=== PATIENT | female | born 1960 | race Caucasian/White ===

== ENCOUNTER 2018-11-21 16:30 | Inpatient (IN) | payer OTHER ==
[2018-11-21 17:29] LABS: ADD MAN DIFF? NO
[2018-11-21 17:32] LABS: WHITE BLOOD COUNT 7.6 10^3/ul (4.8-10.8)
[2018-11-21 17:32] LABS: BASOPHIL # 0.1 10^3/ul (0.0-0.1); BASOPHILS % 0.7 % (0.0-2.0); EOSINOPHILS # 0.1 10^3/ul (0.0-0.5); EOSINOPHILS % 0.7 % (0.0-7.0); HEMATOCRIT 42.8 % (37.0-47.0); HEMOGLOBIN 13.8 g/dl (12.0-16.0); LYMPHOCYTES # 2.1 10^3/ul (0.8-2.9); LYMPHOCYTES % 27.1 % (15.0-51.0); MEAN CORPUSCULAR HEMOGLOBIN 29.2 pg (29.0-33.0); MEAN CORPUSCULAR HGB CONC 32.2 g/dl (32.0-37.0); MEAN CORPUSCULAR VOLUME 90.7 fl (82.0-101.0); MEAN PLATELET VOLUME 9.6 fl (7.4-10.4); MONOCYTE # 0.4 10^3/ul (0.3-0.9); MONOCYTES % 5.3 % (0.0-11.0); NEUTROPHILS % 66.1 % (39.0-77.0); PLATELET COUNT 280 10^3/UL (140-415); RED BLOOD COUNT 4.72 10^6/ul (4.20-5.40)
[2018-11-21 17:51] LABS: ANION GAP 12 (5-13); BLOOD UREA NITROGEN 16 mg/dl (7-20); CALCIUM 9.2 mg/dl (8.4-10.2); CARBON DIOXIDE 23 mmol/L (21-31); CHLORIDE 106 mmol/L (97-110); Estimated GFR > 60 mL/min (>60); GLUCOSE 129 mg/dl (70-220); SODIUM 141 mmol/L (135-144)
[2018-11-21 18:03] LABS: B-TYPE NATRIURETIC PEPTIDE 65 PG/ML (0-125); TROPONIN-I 0.094 ng/ml (0.000-0.120)
[2018-11-21 21:35] LABS: TROPONIN-I 0.553 ng/ml (0.000-0.120)
[2018-11-21] MEDS: ASPIRIN 325 MG TAB PO (22:01)
[2018-11-21] MEDS: DEXTROSE 5%-0.45% NACL 1,000 ML IV (23:42)
[2018-11-22] MEDS ORDERED: NITROGLYCERIN (SL) 0.4 MG TAB SL
[2018-11-22] MEDS ORDERED: ENOXAPARIN 100 MG/ML SYG SC
[2018-11-22] MEDS ORDERED: NACL 0.9% 3 ML SYG IV
[2018-11-22] MEDS ORDERED: ONDANSETRON 4 MG INJ IV
[2018-11-22 01:08] LABS: CREATINE KINASE 68 IU/L (23-200)
[2018-11-22 01:21] LABS: CK INDEX 5.1; CK-MB 3.46 ng/ml (0.0-2.4)
[2018-11-22] MEDS: ENOXAPARIN 60 MG/0.6 ML SYG SC ×2 (02:08→13:23)
[2018-11-22 07:00] LABS: ADD MAN DIFF? NO
[2018-11-22 07:21] LABS: BASOPHIL # 0.1 10^3/ul (0.0-0.1); BASOPHILS % 0.7 % (0.0-2.0); EOSINOPHILS # 0.1 10^3/ul (0.0-0.5); EOSINOPHILS % 0.6 % (0.0-7.0); HEMATOCRIT 41.8 % (37.0-47.0); HEMOGLOBIN 13.3 g/dl (12.0-16.0); LYMPHOCYTES # 3.1 10^3/ul (0.8-2.9); LYMPHOCYTES % 37.9 % (15.0-51.0); MEAN CORPUSCULAR HEMOGLOBIN 28.9 pg (29.0-33.0); MEAN CORPUSCULAR HGB CONC 31.8 g/dl (32.0-37.0); MEAN CORPUSCULAR VOLUME 90.9 fl (82.0-101.0); MONOCYTE # 0.6 10^3/ul (0.3-0.9); MONOCYTES % 7.6 % (0.0-11.0); NEUTROPHIL # 4.3 10^3/ul (1.6-7.5); PLATELET COUNT 287 10^3/UL (140-415); RED CELL DISTRIBUTION WIDTH 12.4 % (11.5-14.5)
[2018-11-22 07:21] LABS: WHITE BLOOD COUNT 8.1 10^3/ul (4.8-10.8)
[2018-11-22 07:33] LABS: HEMOGLOBIN A1C 5.5 % (0-5.9)
[2018-11-22 07:36] LABS: ALANINE AMINOTRANSFERASE 27 IU/L (13-69); ALBUMIN 3.9 g/dl (3.3-4.9); ALBUMIN/GLOBULIN RATIO 1.44; ALKALINE PHOSPHATASE 66 IU/L (42-121); ANION GAP 10 (5-13); ASPARTATE AMINO TRANSFERASE 30 IU/L (15-46); BILIRUBIN,INDIRECT 0.7 mg/dl (0-1.1); BILIRUBIN,TOTAL 0.7 mg/dl (0.2-1.3); BLOOD UREA NITROGEN 15 mg/dl (7-20); CALCIUM 9.3 mg/dl (8.4-10.2); CARBON DIOXIDE 27 mmol/L (21-31); CHLORIDE 107 mmol/L (97-110); CHOL/HDL RATIO 2.4 RATIO; CHOLESTEROL 161 mg/dl (100-200); CREATININE 0.43 mg/dl (0.44-1.00); Estimated GFR > 60 mL/min (>60); GLUCOSE 96 mg/dl (70-220); HDL CHOLESTEROL 66 mg/dl (37-92); LDL CHOLESTEROL,CALCULATED 86 mg/dl; MAGNESIUM 2.3 mg/dl (1.7-2.5); POTASSIUM 4.2 mmol/L (3.5-5.1); SODIUM 144 mmol/L (135-144); TOTAL PROTEIN 6.6 g/dl (6.1-8.1); TRIGLYCERIDES 47 mg/dl (0-149)
[2018-11-22 07:38] LABS: CREATINE KINASE 69 IU/L (23-200)
[2018-11-22 07:55] LABS: CK-MB 3.46 ng/ml (0.0-2.4)
[2018-11-22 07:58] LABS: TROPONIN-I 0.313 ng/ml (0.000-0.120)
[2018-11-22 12:35] LABS: TROPONIN-I 0.197 ng/ml (0.000-0.120)
[2018-11-22] MEDS: DEXTROSE 5%-0.45% NACL 1,000 ML IV (15:03)
[2018-11-22] MEDS: ACETAMINOPHEN 325 MG TAB PO (16:59)
[2018-11-22 18:43] LABS: TROPONIN-I 0.123 ng/ml (0.000-0.120)
[2018-11-22] MEDS: ATORVASTATIN 40 MG TAB PO (20:46)
[2018-11-22] MEDS: METOPROLOL 25 MG TAB PO (20:46)
[2018-11-22 23:58] LABS: TROPONIN-I 0.109 ng/ml (0.000-0.120)
[2018-11-23] MEDS: ENOXAPARIN 60 MG/0.6 ML SYG SC (01:53)
[2018-11-23] MEDS: DEXTROSE 5%-0.45% NACL 1,000 ML IV (03:43)
[2018-11-23 06:37] LABS: ADD MAN DIFF? NO
[2018-11-23 06:43] LABS: BASOPHIL # 0.1 10^3/ul (0.0-0.1); EOSINOPHILS # 0.1 10^3/ul (0.0-0.5); EOSINOPHILS % 1.5 % (0.0-7.0); HEMATOCRIT 42.2 % (37.0-47.0); HEMOGLOBIN 13.4 g/dl (12.0-16.0); LYMPHOCYTES # 2.9 10^3/ul (0.8-2.9); LYMPHOCYTES % 42.2 % (15.0-51.0); MEAN CORPUSCULAR HEMOGLOBIN 29.1 pg (29.0-33.0); MEAN CORPUSCULAR HGB CONC 31.8 g/dl (32.0-37.0); MEAN CORPUSCULAR VOLUME 91.5 fl (82.0-101.0); MONOCYTE # 0.6 10^3/ul (0.3-0.9); MONOCYTES % 8.1 % (0.0-11.0); NEUTROPHIL # 3.2 10^3/ul (1.6-7.5); NEUTROPHILS % 47.1 % (39.0-77.0); PLATELET COUNT 263 10^3/UL (140-415); RED BLOOD COUNT 4.61 10^6/ul (4.20-5.40); RED CELL DISTRIBUTION WIDTH 12.4 % (11.5-14.5)
[2018-11-23 06:43] LABS: WHITE BLOOD COUNT 6.9 10^3/ul (4.8-10.8)
[2018-11-23 07:16] LABS: ANION GAP 7 (5-13); BLOOD UREA NITROGEN 8 mg/dl (7-20); CALCIUM 8.7 mg/dl (8.4-10.2); CARBON DIOXIDE 26 mmol/L (21-31); CHLORIDE 111 mmol/L (97-110); CREATININE 0.38 mg/dl (0.44-1.00); Estimated GFR > 60 mL/min (>60); GLUCOSE 109 mg/dl (70-220); POTASSIUM 3.7 mmol/L (3.5-5.1); SODIUM 144 mmol/L (135-144)
[2018-11-23] MEDS: ASPIRIN (EC) 325 MG TAB PO (08:19)
[2018-11-23] MEDS: METOPROLOL 25 MG TAB PO (08:20)
== END 2018-11-23 14:36 | disposition left against medical advice (07) | DRG 282 ==
LOC: TEL 23:44 → FTE 16:30
DX: I21.4 Non-ST elevation (NSTEMI) myocardial infarction (principal)
CPT/HCPCS: 36415; 71045; 80048; 80053; 80061; 82550; 82553; 83036; 83735; 83880; 84443; 84484; 85025; 93005; 93306; 99285-25